=== PATIENT | male | born 1970 | race African-American/Black ===

== ENCOUNTER 2020-06-17 04:23 | Emergency (ER) | payer MEDICAID ==
[~2020-06-17] VITALS: Ht 193 cm; Wt 124.3 kg
[~2020-06-17 04:23] MED LIST: MIRT45TA3 PO; QUET300T2 PO; SERT100T PO
--- NOTE | 2020-06-17 04:41 | NUR ---
BIBRA FOR HEARING VOICES X 2 DAYS. + SI/ HI. PT WAS GOWNED UP, ALL BELONGINGS WERE TAKEN AWAY AND PUT IN A LOCKED. ON SI PRECAUTION. WILL CONT TO MONITOR ,
--- NOTE | 2020-06-17 04:57 | NUR ---
URINE COLLECTED AND SENT TO LAB
[2020-06-17 05:04] LABS: BASOPHILS # (AUTO) 0.1 /CMM (0.0-0.2); BASOPHILS % (AUTO) 0.8 % (0.0-2.0); EOSINOPHILS % (AUTO) 0.3 % (0.0-6.0); HEMATOCRIT 44 % (39-51); HEMOGLOBIN 14.5 g/dL (13.5-17.5); LYMPHOCYTES # (AUTO) 2.6 /CMM (0.8-4.8); LYMPHOCYTES % (AUTO) 16.2 % (20.0-44.0); MEAN CORPUSCULAR HGB CONC 33 g/dl (31.0-36.0); MEAN CORPUSCULAR VOLUME 91 fL (80-96); MONOCYTES # (AUTO) 1.4 /CMM (0.1-1.30); MONOCYTES % (AUTO) 8.9 % (2.0-12.0); NEUTROPHILS # (AUTO) 11.8 /CMM (1.8-8.9); NEUTROPHILS % (AUTO) 73.8 % (43.0-81.0); PLATELET COUNT (AUTO) 283 /CMM (150-450); RED BLOOD CELL COUNT(AUTO) 4.82 MIL/uL (4.5-6.0)
[2020-06-17 05:10] LABS: BILIRUBIN,URINE NEGATIVE (NEGATIVE); BLOOD, URINE NEGATIVE Ery/uL (NEGATIVE); COLOR,URINE YELLOW (YELLOW); LEUKOCYTE ESTERASE ,URINE NEGATIVE (NEGATIVE); NITRITE, URINE NEGATIVE (NEGATIVE); PROTEIN,URINE TRACE mg/dl (NEGATIVE); UGLUCOSE NEGATIVE (NEGATIVE); UROBILINOGEN,URINE 0.2 EU/dL (0.2)
[2020-06-17 05:11] LABS: CALCIUM, SERUM 9.4 mg/dL (8.5-10.1); CARBON DIOXIDE 24 mmol/L (21-32); CHLORIDE 101 mmol/L (98-107); CREATININE 1.1 mg/dL (0.6-1.3); GLUCOSE 101 mg/dL (74-106); POTASSIUM 3.9 mmol/L (3.5-5.1); SODIUM SERUM 137 mmol/L (136-145); UREA NITROGEN, BLOOD 14 mg/dL (7-18)
[2020-06-17 05:16] LABS: ALANINE AMINOTRANSFERASE 108 U/L (12-78); ALBUMIN 4.1 g/dL (3.4-5.0); ALCOHOL, BLOOD < 3 mg/dL (0-0); ALKALINE PHOSPHATASE 125 U/L (46-116); ASPARTATE AMINOTRANSFERASE 155 U/L (15-37); BILIRUBIN,DIRECT 0.4 mg/dL (0.0-0.2); TOTAL PROTEIN, SERUM 7.8 g/dL (6.4-8.2)
[2020-06-17 05:17] LABS: ACETAMINOPHEN 0 ug/ml (10-30)
[2020-06-17 05:18] LABS: BACTERIA,URINE None seen /HPF (None Seen); RBC,URINE 0-2 /HPF (0-2); SQUAMOUS EPITHELIAL CELL,UR Few /HPF (None Seen); WBC,URINE 0-2 /HPF (0-3)
--- NOTE | 2020-06-17 06:20 | NUR ---
Patient is resting comfortably in bed with eyes closed. Easily aroused. VSS
[2020-06-17] MEDS ORDERED: IV NS 0.9% 1,000 ML BAG IV ONE (06:30)
[2020-06-17] MEDS ORDERED: LORAZEPAM 1 MG TABLET PO ONE (06:30)
[2020-06-17] MEDS ORDERED: LORAZEPAM 1 MG TABLET ONE (06:37)
--- NOTE | 2020-06-17 07:13 | NUR ---
multiple attempts to start iv line , unsucsessful. Dr. James made aware
--- NOTE | 2020-06-17 11:43 | NUR ---
SW received a call from ED RN Christen requesting a health social work professor consultation for this patient. Patient is a 49-year-old male. Patient is alert and oriented x4. Patient was lying in bed. Patient was receptive to speaking to this SW. Patient reports he has been living with a family member however patient reports that he is homeless. Patient denies alcohol and patient admitted to Methamphetamine use. Patient's labs confirmed patient was positive for methamphetamine. Patient presented to [facility] ED for suicidal ideation. Patient reports that he has been diagnosed with Bipolar and Schizoaffective and patient reports that he is current out of his prescription. Patient reports that he has a monthly meeting with his psychiatrist over the phone and his therapist once a week. Patient reports that he spoke with his therapist early last week and started to have suicidal thoughts 2-3 days ago. Patient currently reports auditory hallucinations of reports stating he needs to hurt himself. Patient also reports visual hallucination of shadows attacking him. Patient denies homicidal ideation. Patient reported that he has been in a voluntary psychiatric facility approximately 6 months ago. SW and patient discussed voluntary psychiatric hospitalization and patient was in agreement for voluntary hospitalization. SW discussed referral option to [facility] and patient agreed to be referred to [facility]. Patient was cooperative and calm during this assessment. Patient's though process was tangential. Patient's speech was slurred and needed redirection at times throughout this assessment. Plan: ODESSA to fax clinicals to [facility] fax # and notify [facility] call center , select option 2. This long term care social worker will wait to hear back from [facility] intake regarding status of referral. This long term care social worker will follow-up with [facility] if status update is not provided.
--- NOTE | 2020-06-17 12:15 | NUR ---
ODESSA referred patient to [facility] as no update has been provided from [facility]. ODESSA contacted Jl at [facility] to inform Jl of this referral. Jl asked this SW to fax clinicals to [facility] Intake
--- NOTE | 2020-06-17 14:17 | NUR ---
RECIEVED A CALL FROM VICTOR HUGO AT [facility]. PT ACCEPTED AT [facility], GOING TO UNIT 1. NUMBER FOR REPORT [phone] HO/ DR. CARVAJAL ACCEPTING.
--- NOTE | 2020-06-17 14:50 | NUR ---
CALLED [facility] FOR TRANSPORT TO [facility]. ETA 1 HOUR.
--- NOTE | 2020-06-17 14:52 | NUR ---
REPORT GIVEN TO LILA BUTLER OF [facility].
--- NOTE | 2020-06-17 16:04 | NUR ---
REPORT GIVEN TO EMS FOR PT TRANSFER TO [facility].
[2020-06-17 16:40] VITALS: BP 124/78
== END 2020-06-17 16:42 ==
LOC: ER 04:23
DX: R45.851 Suicidal ideations (principal); R00.0 Tachycardia, unspecified; Z59.0 Homelessness; F15.10 Other stimulant abuse, uncomplicated; R74.01 Elevation of levels of liver transaminase levels; Z20.828 Contact with and (suspected) exposure to other viral communicable diseases; Z82.49 Family history of ischemic heart disease and other diseases of the circulatory system; F25.9 Schizoaffective disorder, unspecified; J45.909 Unspecified asthma, uncomplicated; F31.9 Bipolar disorder, unspecified
CPT/HCPCS: 36415; 76705; 80048; 80076; 80299; 80307; 80320; 81001; 84484; 85025; 87426; 93005; 99285; C9803; J7030; G0480

== ENCOUNTER 2020-11-15 23:51 | Emergency (ER) | payer MEDICAID ==
[~2020-11-15] VITALS: Ht 190.5 cm; Wt 113.4 kg
--- NOTE | 2020-11-15 23:51 | NUR ---
Pt to er, previously seen today requesting for med refill of albuterol, now requesting medclearance for socal van nuys. Pt endorses si with plan to shoot self, does not own gun. No immediate signs of distress noted. Pt vital signs stable. Pt to er bed, belongings removed from pt. SI precautions implememnted.
[2020-11-16 00:45] LABS: BASOPHILS # (AUTO) 0.1 /CMM (0.0-0.2); BASOPHILS % (AUTO) 0.7 % (0.0-2.0); EOSINOPHILS % (AUTO) 0.6 % (0.0-6.0); HEMATOCRIT 41 % (39-51); HEMOGLOBIN 13.5 g/dL (13.5-17.5); LYMPHOCYTES # (AUTO) 2.6 /CMM (0.8-4.8); LYMPHOCYTES % (AUTO) 20.5 % (20.0-44.0); MEAN CORPUSCULAR HGB CONC 33 g/dl (31.0-36.0); MEAN CORPUSCULAR VOLUME 93 fL (80-96); MONOCYTES # (AUTO) 1.3 /CMM (0.1-1.30); MONOCYTES % (AUTO) 10.4 % (2.0-12.0); NEUTROPHILS # (AUTO) 8.6 /CMM (1.8-8.9); NEUTROPHILS % (AUTO) 67.8 % (43.0-81.0); PLATELET COUNT (AUTO) 346 /CMM (150-450); RED BLOOD CELL COUNT(AUTO) 4.39 MIL/uL (4.5-6.0); WHITE BLOOD COUNT (AUTO) 12.6 K/uL (4.3-11.0)
[2020-11-16 00:47] LABS: BILIRUBIN,URINE NEGATIVE (NEGATIVE); COLOR,URINE YELLOW (YELLOW); LEUKOCYTE ESTERASE ,URINE NEGATIVE (NEGATIVE); NITRITE, URINE NEGATIVE (NEGATIVE); PH,URINE 5.5 (5.0-8.0); PROTEIN,URINE NEGATIVE (NEGATIVE); UGLUCOSE NEGATIVE (NEGATIVE); UROBILINOGEN,URINE 0.2 EU/dL (0.2)
[2020-11-16 01:15] LABS: CALCIUM, SERUM 8.9 mg/dL (8.5-10.1); CARBON DIOXIDE 26 mmol/L (21-32); CHLORIDE 103 mmol/L (98-107); CREATININE 1.2 mg/dL (0.6-1.3); GLUCOSE 106 mg/dL (74-106); POTASSIUM 3.7 mmol/L (3.5-5.1); SODIUM SERUM 140 mmol/L (136-145); UREA NITROGEN, BLOOD 14 mg/dL (7-18)
[2020-11-16 01:21] LABS: ALANINE AMINOTRANSFERASE 37 U/L (12-78); ALCOHOL, BLOOD < 3 mg/dL (0-0); ASPARTATE AMINOTRANSFERASE 35 U/L (15-37); BILIRUBIN,DIRECT 0.2 mg/dL (0.0-0.2); BILIRUBIN,TOTAL 0.8 mg/dL (0.2-1.0); TOTAL PROTEIN, SERUM 7.6 g/dL (6.4-8.2)
[2020-11-16 01:24] LABS: ACETAMINOPHEN 0 ug/ml (10-30)
--- NOTE | 2020-11-16 01:39 | NUR ---
CALL FROM LAB. RAPID COVID NEGATIVE.
[2020-11-16 01:45] LABS: ALKALINE PHOSPHATASE 131 U/L (46-116)
--- NOTE | 2020-11-16 01:50 | NUR ---
FACESHEET AND CLINICALS FAXED TO [facility].
--- NOTE | 2020-11-16 05:05 | NUR ---
Pt requesting to leave er. Pt is denying si and hi. Dr Neil made aware. Pt left er without waiting for discharge instructions.
[2020-11-16 05:10] VITALS: BP 145/89
== END 2020-11-16 05:10 | disposition home or self-care (01) ==
LOC: ER 23:53
DX: R45.851 Suicidal ideations (principal); F25.0 Schizoaffective disorder, bipolar type; J45.909 Unspecified asthma, uncomplicated; Z59.0 Homelessness; I10 Essential (primary) hypertension; Z20.822 Contact with and (suspected) exposure to COVID-19; F15.10 Other stimulant abuse, uncomplicated
CPT/HCPCS: 36415; 80048; 80076; 80299; 80307; 80320; 81003; 85025; 87426; 99285; C9803; G0480

== ENCOUNTER 2021-02-23 11:43 | Emergency (ER) | payer MEDICAID ==
[~2021-02-23] VITALS: Ht 195.6 cm; Wt 106.6 kg
--- NOTE | 2021-02-23 12:05 | NUR ---
Patient bibra c/o lower leg pain. patient states he is suicidal "i want to run throough traffic". on room air, breathing evenly and unlabored. kept comfortable, will continue to monitor accordingly.
--- NOTE | 2021-02-23 12:06 | NUR ---
called security for wanding.
--- NOTE | 2021-02-23 12:10 | NUR ---
security at bedside for wanding. Sitter at bedside for constant monitoring.
[2021-02-23 12:35] LABS: BASOPHILS % (AUTO) 0.4 % (0.0-2.0); EOSINOPHILS % (AUTO) 1.5 % (0.0-6.0); HEMATOCRIT 39 % (39-51); HEMOGLOBIN 12.9 g/dL (13.5-17.5); LYMPHOCYTES # (AUTO) 1.6 K/uL (0.8-4.8); LYMPHOCYTES % (AUTO) 16.7 % (20.0-44.0); MEAN CORPUSCULAR HGB CONC 33 g/dl (31.0-36.0); MEAN CORPUSCULAR VOLUME 91 fL (80-96); MONOCYTES # (AUTO) 1.4 K/uL (0.1-1.30); MONOCYTES % (AUTO) 14.4 % (2.0-12.0); NEUTROPHILS # (AUTO) 6.4 K/uL (1.8-8.9); PLATELET COUNT (AUTO) 346 K/uL (150-450); RED BLOOD CELL COUNT(AUTO) 4.25 MIL/uL (4.5-6.0); WHITE BLOOD COUNT (AUTO) 9.6 K/uL (4.3-11.0)
[2021-02-23 12:54] LABS: ALANINE AMINOTRANSFERASE 49 U/L (12-78); ALBUMIN 3.7 g/dL (3.4-5.0); ALKALINE PHOSPHATASE 91 U/L (46-116); ASPARTATE AMINOTRANSFERASE 46 U/L (15-37); BILIRUBIN,DIRECT 0.2 mg/dL (0.0-0.2); BILIRUBIN,TOTAL 0.8 mg/dL (0.2-1.0); CALCIUM, SERUM 8.9 mg/dL (8.5-10.1); CARBON DIOXIDE 25 mmol/L (21-32); CHLORIDE 104 mmol/L (98-107); CREATININE 1.5 mg/dL (0.6-1.3); GLUCOSE 82 mg/dL (74-106); SODIUM SERUM 140 mmol/L (136-145); TOTAL PROTEIN, SERUM 7.5 g/dL (6.4-8.2); UREA NITROGEN, BLOOD 26 mg/dL (7-18)
[2021-02-23 13:10] LABS: ACETAMINOPHEN < 10 ug/ml (10-30); ALCOHOL, BLOOD < 3 mg/dL (0-0)
[2021-02-23 13:12] LABS: BILIRUBIN,URINE NEGATIVE (NEGATIVE); LEUKOCYTE ESTERASE ,URINE NEGATIVE (NEGATIVE); NITRITE, URINE NEGATIVE (NEGATIVE); PROTEIN,URINE NEGATIVE (NEGATIVE); UGLUCOSE NEGATIVE (NEGATIVE); UROBILINOGEN,URINE 0.2 EU/dL (0.2)
[2021-02-23 13:17] LABS: COLOR,URINE DARK YELLOW (YELLOW)
[2021-02-23] MEDS ORDERED: ACETAMINOPHEN 325 MG TABLET ONE (17:58)
[2021-02-23] MEDS ORDERED: OLANZAPINE ZYDIS 5 MG TAB.RAPDIS ONE (17:58)
[2021-02-23] MEDS ORDERED: OLANZAPINE 5 MG TABLET PO ONE (18:00)
[2021-02-23] MEDS ORDERED: ACETAMINOPHEN 650 MG/20.3 ML UDC PO ONE (18:00)
--- NOTE | 2021-02-23 22:51 | NUR ---
PT ACCEPTED TO [facility] BY DR CAMPOS. # FOR REPORT [phone]
--- NOTE | 2021-02-23 23:15 | NUR ---
[facility] CALLED FOR TRANSPORT. ETA [phone]
[2021-02-24 03:13] VITALS: BP 122/69
--- NOTE | 2021-02-24 03:14 | NUR ---
ROOM NUMBER [id number]
--- NOTE | 2021-02-24 03:47 | NUR ---
REPORT GIVEN TO CELESTINE SHARP FOR [facility]
--- NOTE | 2021-02-24 03:57 | NUR ---
[facility] changed time to [phone]
[2021-02-24] MEDS ORDERED: ACETAMINOPHEN 325 MG TABLET ONE (05:41)
--- NOTE | 2021-02-24 05:52 | NUR ---
[facility] AT BEDSIDE FOR TRANSPORT TO [facility].
[2021-02-24] MEDS ORDERED: ACETAMINOPHEN 325 MG TABLET PO ONE (06:00)
== END 2021-02-24 06:02 ==
LOC: ER 11:50
DX: R45.851 Suicidal ideations (principal); F23 Brief psychotic disorder; M79.672 Pain in left foot; F19.10 Other psychoactive substance abuse, uncomplicated; Z20.822 Contact with and (suspected) exposure to COVID-19; M19.072 Primary osteoarthritis, left ankle and foot; M20.42 Other hammer toe(s) (acquired), left foot; D64.9 Anemia, unspecified; Z59.0 Homelessness; F25.0 Schizoaffective disorder, bipolar type; J45.909 Unspecified asthma, uncomplicated; I10 Essential (primary) hypertension; S99.922A Unspecified injury of left foot, initial encounter; X58.XXXA Exposure to other specified factors, initial encounter; Y92.89 Other specified places as the place of occurrence of the external cause
CPT/HCPCS: 36415; 73630; 80048; 80076; 80143; 80307; 80320; 81003; 85025; 87426; 99285; C9803; G0480

== ENCOUNTER 2021-03-18 00:29 | Emergency (ER) | payer MEDICAID ==
[~2021-03-18] VITALS: Ht 188 cm; Wt 99.8 kg
[2021-03-18 00:29] VITALS: BP 113/71
== END 2021-03-18 00:59 | disposition home or self-care (01) ==
LOC: ER 00:35
DX: F30.9 Manic episode, unspecified (principal); I10 Essential (primary) hypertension; J45.909 Unspecified asthma, uncomplicated; F20.9 Schizophrenia, unspecified; F17.200 Nicotine dependence, unspecified, uncomplicated; Z59.0 Homelessness; Z79.899 Other long term (current) drug therapy

== ENCOUNTER 2021-04-14 05:07 | Emergency (ER) | payer MEDICAID ==
[~2021-04-14] VITALS: Ht 190.5 cm; Wt 102.1 kg
--- NOTE | 2021-04-14 05:18 | NUR ---
PT PROVIDED WITH WARM BLANKETS.
[2021-04-14] MEDS ORDERED: OLANZAPINE 5 MG TABLET ONE (05:23)
[2021-04-14] MEDS ORDERED: OLANZAPINE 5 MG TABLET PO ONE (05:30)
--- NOTE | 2021-04-14 05:34 | NUR ---
NESTOR FROM 711 TO ER BED 14. AAOX4. NOT IN RESP DISTRESS. AMBULATORY. BROUGHT IN FOR HEARING VOICES. PER PT, HE IS HEARING RANDOM VOICES, NOT TELLING HIM TO HURT HIMSELF. PT ALSO REPORTS THAT HE HAS RACING THOUGHTS. MD WAS AT THE BEDSIDE FOR EVAL. ORDERS RECEIVED, NOTED AND CARRIED OUT. PT MEDICATED ORDERED
--- NOTE | 2021-04-14 05:45 | NUR ---
urine sent to lab
--- NOTE | 2021-04-14 07:25 | NUR ---
ASSESSED PT ON BED AWAKE, AAOX3, NOT IN RESPIRATORY DISTRESS, V/S STABLE, KEPT RESTED AND COMFORTABLE. WILL CONTINUE TO MONITOR.
--- NOTE | 2021-04-14 07:29 | NUR ---
BREAKFAST TRAY PROVIDED.
[2021-04-14 08:24] LABS: CARBON DIOXIDE 28 mmol/L (21-32); CHLORIDE 104 mmol/L (98-107); GLUCOSE 95 mg/dL (74-106); POTASSIUM 3.8 mmol/L (3.5-5.1); SODIUM SERUM 141 mmol/L (136-145); UREA NITROGEN, BLOOD 14 mg/dL (7-18)
[2021-04-14 08:26] LABS: BILIRUBIN,URINE Negative (NEGATIVE); COLOR,URINE DARK YELLOW (YELLOW); LEUKOCYTE ESTERASE ,URINE Negative (NEGATIVE); NITRITE, URINE Negative (NEGATIVE); PROTEIN,URINE Negative (NEGATIVE); UGLUCOSE Negative (NEGATIVE)
[2021-04-14 08:28] LABS: BASOPHILS # (AUTO) 0.1 K/uL (0.0-0.2); EOSINOPHILS % (AUTO) 2.2 % (0.0-6.0); HEMATOCRIT 41 % (39-51); HEMOGLOBIN 13.7 g/dL (13.5-17.5); LYMPHOCYTES # (AUTO) 1.8 K/uL (0.8-4.8); LYMPHOCYTES % (AUTO) 19.8 % (20.0-44.0); MEAN CORPUSCULAR HGB CONC 34 g/dl (31.0-36.0); MEAN CORPUSCULAR VOLUME 91 fL (80-96); MONOCYTES # (AUTO) 0.9 K/uL (0.1-1.30); MONOCYTES % (AUTO) 9.6 % (2.0-12.0); NEUTROPHILS % (AUTO) 67.4 % (43.0-81.0); PLATELET COUNT (AUTO) 315 K/uL (150-450); WHITE BLOOD COUNT (AUTO) 8.9 K/uL (4.3-11.0)
[2021-04-14 08:30] LABS: ACETAMINOPHEN < 0 ug/ml (10-30); ALANINE AMINOTRANSFERASE 57 U/L (12-78); ALBUMIN 3.9 g/dL (3.4-5.0); ALCOHOL, BLOOD < 3 mg/dL (0-0); ALKALINE PHOSPHATASE 116 U/L (46-116); ASPARTATE AMINOTRANSFERASE 37 U/L (15-37); BILIRUBIN,DIRECT 0.3 mg/dL (0.0-0.2); CALCIUM, SERUM 8.7 mg/dL (8.5-10.1); TOTAL PROTEIN, SERUM 7.8 g/dL (6.4-8.2)
[2021-04-14 08:41] LABS: BACTERIA,URINE Few /HPF (None Seen); MUCUS,URINE Moderate /LPF (None Seen); RBC,URINE 0-2 /HPF (0-2); SQUAMOUS EPITHELIAL CELL,UR Few /HPF (None Seen); WBC,URINE 0-2 /HPF (0-3)
--- NOTE | 2021-04-14 09:30 | NUR ---
FAXED MISSING FACE SHEET TO [facility]
--- NOTE | 2021-04-14 10:35 | NUR ---
PT STATED HE WANTS TO LEAVE AND NOT SUICIDAL OR HOMICIDAL. AWARE.
--- NOTE | 2021-04-14 10:38 | NUR ---
Patient given written and verbal discharge instructions. Patient verbalizes understanding of instructions. Patient is ambulatory with steady gait. Refuses offer of care home placement. Patient given list of available shelters in surrounding area.
[2021-04-14 10:40] VITALS: BP 130/75
--- NOTE | 2021-04-14 10:50 | NUR ---
SS note SS was unable to assess the pt as the pt had already been discharged prior to arrival. No further SS intervention at this time, however, SS will remain available as needed.
== END 2021-04-14 10:40 | disposition home or self-care (01) ==
LOC: ER 05:09
DX: F23 Brief psychotic disorder (principal); F15.10 Other stimulant abuse, uncomplicated; Z59.0 Homelessness; F25.0 Schizoaffective disorder, bipolar type; J45.909 Unspecified asthma, uncomplicated; Z79.899 Other long term (current) drug therapy
CPT/HCPCS: 36415; 80048; 80076; 80143; 80307; 80320; 81001; 85025; 87426; 99283; C9803; G0480

== ENCOUNTER 2022-01-09 03:23 | Emergency (ER) | payer MEDICAID ==
[~2022-01-09] VITALS: Ht 188 cm; Wt 117.9 kg
[2022-01-09] MEDS ORDERED: OLANZAPINE 5 MG TABLET ONE (03:58)
[2022-01-09] MEDS ORDERED: OLANZAPINE 5 MG TABLET PO ONE (04:00)
[2022-01-09 04:14] LABS: BASOPHILS # (AUTO) 0.1 K/uL (0.0-0.2); BASOPHILS % (AUTO) 0.5 % (0.0-2.0); EOSINOPHILS % (AUTO) 0.2 % (0.0-6.0); HEMATOCRIT 43 % (39-51); HEMOGLOBIN 14.6 g/dL (13.5-17.5); LYMPHOCYTES # (AUTO) 1.5 K/uL (0.8-4.8); LYMPHOCYTES % (AUTO) 11.7 % (20.0-44.0); MEAN CORPUSCULAR HGB CONC 34 g/dl (31.0-36.0); MEAN CORPUSCULAR VOLUME 88 fL (80-96); MONOCYTES # (AUTO) 1.1 K/uL (0.1-1.30); MONOCYTES % (AUTO) 8.8 % (2.0-12.0); NEUTROPHILS # (AUTO) 10.2 K/uL (1.8-8.9); NEUTROPHILS % (AUTO) 78.8 % (43.0-81.0); PLATELET COUNT (AUTO) 316 K/uL (150-450); RED BLOOD CELL COUNT(AUTO) 4.86 MIL/uL (4.5-6.0)
[2022-01-09 04:16] LABS: BILIRUBIN,URINE NEGATIVE (NEGATIVE); COLOR,URINE YELLOW (YELLOW); LEUKOCYTE ESTERASE ,URINE NEGATIVE (NEGATIVE); NITRITE, URINE NEGATIVE (NEGATIVE); PROTEIN,URINE NEGATIVE (NEGATIVE); UGLUCOSE NEGATIVE (NEGATIVE); UROBILINOGEN,URINE 0.2 EU/dL (0.2)
--- NOTE | 2022-01-09 04:19 | NUR ---
PT BIBRA [id number] FROM [facility] C/O + SI HEARING VOICES, WANTING VOL PSYCH ADMIT. PT A/O X 4, RR EVEN UNLABORED. PT WANDED BY SECURITY, BELONGINGS TAKEN, PT IN HOSPIPTAL GOWN. PT TO ER BED 18
--- NOTE | 2022-01-09 04:21 | NUR ---
URINE COLLECTED SENT TO LAB
--- NOTE | 2022-01-09 04:21 | NUR ---
ANURADHA COLLECTED SENT LAB
[2022-01-09 04:23] LABS: ALANINE AMINOTRANSFERASE 59 U/L (12-78); ALBUMIN 4.5 g/dL (3.4-5.0); ALCOHOL, BLOOD < 3 mg/dL (0-0); ALKALINE PHOSPHATASE 196 U/L (46-116); ASPARTATE AMINOTRANSFERASE 35 U/L (15-37); BILIRUBIN,DIRECT 0.2 mg/dL (0.0-0.2); BILIRUBIN,TOTAL 0.8 mg/dL (0.2-1.0); CALCIUM, SERUM 9.4 mg/dL (8.5-10.1); CARBON DIOXIDE 25 mmol/L (21-32); CHLORIDE 103 mmol/L (98-107); CREATININE 1.4 mg/dL (0.6-1.3); GLUCOSE 133 mg/dL (74-106); POTASSIUM 4.1 mmol/L (3.5-5.1); SODIUM SERUM 141 mmol/L (136-145); TOTAL PROTEIN, SERUM 8.4 g/dL (6.4-8.2); UREA NITROGEN, BLOOD 14 mg/dL (7-18)
[2022-01-09 04:25] LABS: ACETAMINOPHEN 0 ug/ml (10-30)
--- NOTE | 2022-01-09 06:37 | NUR ---
FACESHEET AND CLINICALS FAXED TO [facility].
--- NOTE | 2022-01-09 08:37 | NUR ---
THE PATIENT IS ACCEPTED TO [facility] UNDER DR BUITRAGO NUMBER FOR REPORT [phone] EXT [phone]
[2022-01-09 08:45] VITALS: BP 131/87
--- NOTE | 2022-01-09 08:46 | NUR ---
[facility] CALLED FOR TRANSPORT WITH ETA OF 60 MINS PER NOHELIA.
--- NOTE | 2022-01-09 09:02 | NUR ---
REPORT GIVEN TO KWAN AUGUSTIN FOR [facility]. SEND PATIENT TO ADMITTING
--- NOTE | 2022-01-09 09:44 | NUR ---
REPORT GIVEN TO AMBULANCE STAFF
--- NOTE | 2022-01-09 10:01 | NUR ---
THE PATIENT IS TRANSFERED TO [facility] VIA [facility] TRANSPO
== END 2022-01-09 10:01 ==
LOC: ER 03:31
DX: R45.851 Suicidal ideations (principal); Z59.00 Homelessness unspecified; Z20.822 Contact with and (suspected) exposure to COVID-19; F25.9 Schizoaffective disorder, unspecified; F31.9 Bipolar disorder, unspecified; F19.10 Other psychoactive substance abuse, uncomplicated; I10 Essential (primary) hypertension; J45.909 Unspecified asthma, uncomplicated; F17.200 Nicotine dependence, unspecified, uncomplicated
CPT/HCPCS: 36415; 80048; 80076; 80143; 80307; 80320; 81003; 85025; 87426; 99285; C9803; G0480

== ENCOUNTER 2022-06-10 20:43 | Emergency (ER) | payer MEDICAID, OTHER ==
[~2022-06-10] VITALS: Ht 182.9 cm; Wt 135.2 kg
--- NOTE | 2022-06-10 21:22 | NUR ---
PRESENTED TO THE ER FOR C/O SI, REQUESTING VOLUNTARY PSYCH ADMISSION. PT A, O4. AMBULATORY WITH STEADY GAITS T OTHE BATHROOM. URINE SAMPLE OBTAINED AND SENT TO LAB. PT WAS GOWNED UP AND ALL BELONGINGS WERE TAKEN AWAY AND KEPT IN SAFE. SI PRECAUTION IMPLEMENTED. WILL CONT TO MONITOR
[2022-06-10] MEDS ORDERED: OLANZAPINE 10 MG VIAL IM ONE ×2 (21:57→22:00)
[2022-06-10 22:00] LABS: BILIRUBIN,URINE 1+ (NEGATIVE); COLOR,URINE YELLOW (YELLOW); LEUKOCYTE ESTERASE ,URINE NEGATIVE (NEGATIVE); NITRITE, URINE NEGATIVE (NEGATIVE); PH,URINE 5.5 (5.0-8.0); PROTEIN,URINE NEGATIVE (NEGATIVE); UGLUCOSE NEGATIVE (NEGATIVE); UROBILINOGEN,URINE 0.2 EU/dL (0.2)
[2022-06-10 22:31] LABS: RBC,URINE 0-2 /HPF (0-2); WBC,URINE 0-2 /HPF (0-3)
[2022-06-10 22:32] LABS: BACTERIA,URINE Rare /HPF (None Seen); MUCUS,URINE Many /LPF (None Seen); SQUAMOUS EPITHELIAL CELL,UR Moderate /HPF (None Seen)
--- NOTE | 2022-06-11 00:48 | NUR ---
BUILDING COORDINATOR AT PT'S BEDSIDE
[2022-06-11 01:19] LABS: BASOPHILS # (AUTO) 0.1 K/uL (0.0-0.2); BASOPHILS % (AUTO) 0.5 % (0.0-2.0); EOSINOPHILS % (AUTO) 0.8 % (0.0-6.0); HEMATOCRIT 43 % (39-51); HEMOGLOBIN 14.2 g/dL (13.5-17.5); LYMPHOCYTES # (AUTO) 1.9 K/uL (0.8-4.8); LYMPHOCYTES % (AUTO) 17.1 % (20.0-44.0); MEAN CORPUSCULAR HGB CONC 33 g/dl (31.0-36.0); MEAN CORPUSCULAR VOLUME 89 fL (80-96); MONOCYTES # (AUTO) 1.1 K/uL (0.1-1.30); MONOCYTES % (AUTO) 9.9 % (2.0-12.0); NEUTROPHILS # (AUTO) 7.9 K/uL (1.8-8.9); NEUTROPHILS % (AUTO) 71.7 % (43.0-81.0); PLATELET COUNT (AUTO) 313 K/uL (150-450); RED BLOOD CELL COUNT(AUTO) 4.89 MIL/uL (4.5-6.0); WHITE BLOOD COUNT (AUTO) 11.1 K/uL (4.3-11.0)
[2022-06-11 01:30] LABS: CALCIUM, SERUM 9.1 mg/dL (8.5-10.1); CARBON DIOXIDE 21 mmol/L (21-32); CHLORIDE 107 mmol/L (98-107); CREATININE 0.9 mg/dL (0.6-1.3); GLUCOSE 120 mg/dL (74-106); POTASSIUM 3.9 mmol/L (3.5-5.1); SODIUM SERUM 140 mmol/L (136-145); UREA NITROGEN, BLOOD 17 mg/dL (7-18)
[2022-06-11 01:36] LABS: ALANINE AMINOTRANSFERASE 42 U/L (12-78); ALBUMIN 4.1 g/dL (3.4-5.0); ALCOHOL, BLOOD < 3 mg/dL (0-0); ALKALINE PHOSPHATASE 124 U/L (46-116); ASPARTATE AMINOTRANSFERASE 20 U/L (15-37); BILIRUBIN,DIRECT 0.2 mg/dL (0.0-0.2); BILIRUBIN,TOTAL 0.5 mg/dL (0.2-1.0); TOTAL PROTEIN, SERUM 7.9 g/dL (6.4-8.2)
[2022-06-11 01:54] LABS: ACETAMINOPHEN 0 ug/ml (10-30)
--- NOTE | 2022-06-11 03:00 | NUR ---
FACESHEET AND CLINICALS FAXED TO [facility].
--- NOTE | 2022-06-11 08:00 | NUR ---
Breakfast given- Tolerated well. Ate 100%
--- NOTE | 2022-06-11 10:51 | NUR ---
Spoke to [facility] Payable Representative Tyra "We have NO male beds right now but have discharges around 11am. Will keep you updated"
--- NOTE | 2022-06-11 10:57 | NUR ---
PT ACCEPTED AT [facility] UNDER DR. QUINTERO [phone] EXT [phone] FOR REPORT [facility] ETA 60 MINS
[2022-06-11 12:35] VITALS: BP 140/89
== END 2022-06-11 12:36 ==
LOC: ER 20:51
DX: R45.851 Suicidal ideations (principal); F25.9 Schizoaffective disorder, unspecified; F31.9 Bipolar disorder, unspecified; I10 Essential (primary) hypertension; Z20.822 Contact with and (suspected) exposure to COVID-19; J45.909 Unspecified asthma, uncomplicated; Z59.00 Homelessness unspecified; Z79.899 Other long term (current) drug therapy; K42.9 Umbilical hernia without obstruction or gangrene
CPT/HCPCS: 99285; 96372; 85025; 80048; 80076; 81001; 36415; 87426; 80143; 80320; 80307; J3490; C9803; G0480

== ENCOUNTER 2022-06-19 04:54 | Emergency (ER) | payer OTHER ==
[~2022-06-19] VITALS: Ht 193 cm; Wt 135.6 kg
--- NOTE | 2022-06-19 05:02 | NUR ---
COVID ANTIGEN SWAB COLLECTED AND SENT TO LAB
--- NOTE | 2022-06-19 05:04 | NUR ---
BIBSELF C/O +SI-HI WITH PLAN TO RUN INTO TRAFFIC. WANTS VOL PSYCH ADMIT PT A/OX4. TOLERATING R/A WELL WITH NO RESP DISRESS.PT AMBULATORY WITH STEADY GAIT. PT CHANGED IN GOWN, BELONGINGS COLLECTED AND PLACED IN LOCKER. WANDED BY SECURITY. SAFETY SUICIDE MEASURES IN PLACE.
--- NOTE | 2022-06-19 05:10 | NUR ---
AUTOMATIC EQUIPMENT TECHNICIAN AT PT'S BEDSIDE
[2022-06-19 05:41] LABS: BILIRUBIN,URINE NEGATIVE (NEGATIVE); COLOR,URINE YELLOW (YELLOW); LEUKOCYTE ESTERASE ,URINE NEGATIVE (NEGATIVE); NITRITE, URINE NEGATIVE (NEGATIVE); PH,URINE 5.5 (5.0-8.0); PROTEIN,URINE NEGATIVE (NEGATIVE); UGLUCOSE NEGATIVE (NEGATIVE); UROBILINOGEN,URINE 0.2 EU/dL (0.2)
[2022-06-19 05:57] LABS: BASOPHILS # (AUTO) 0.1 K/uL (0.0-0.2); BASOPHILS % (AUTO) 0.6 % (0.0-2.0); EOSINOPHILS % (AUTO) 0.3 % (0.0-6.0); HEMATOCRIT 44 % (39-51); HEMOGLOBIN 14.4 g/dL (13.5-17.5); LYMPHOCYTES # (AUTO) 1.4 K/uL (0.8-4.8); LYMPHOCYTES % (AUTO) 11.5 % (20.0-44.0); MEAN CORPUSCULAR HGB CONC 33 g/dl (31.0-36.0); MEAN CORPUSCULAR VOLUME 89 fL (80-96); MONOCYTES # (AUTO) 0.9 K/uL (0.1-1.30); MONOCYTES % (AUTO) 7.5 % (2.0-12.0); NEUTROPHILS # (AUTO) 9.7 K/uL (1.8-8.9); NEUTROPHILS % (AUTO) 80.1 % (43.0-81.0); PLATELET COUNT (AUTO) 289 K/uL (150-450); RED BLOOD CELL COUNT(AUTO) 4.91 MIL/uL (4.5-6.0); WHITE BLOOD COUNT (AUTO) 12.1 K/uL (4.3-11.0)
[2022-06-19 06:14] LABS: CALCIUM, SERUM 9.5 mg/dL (8.5-10.1); CARBON DIOXIDE 25 mmol/L (21-32); CHLORIDE 107 mmol/L (98-107); GLUCOSE 112 mg/dL (74-106); POTASSIUM 3.7 mmol/L (3.5-5.1); SODIUM SERUM 141 mmol/L (136-145); UREA NITROGEN, BLOOD 16 mg/dL (7-18)
[2022-06-19 06:21] LABS: ALANINE AMINOTRANSFERASE 37 U/L (12-78); ALBUMIN 4.1 g/dL (3.4-5.0); ALKALINE PHOSPHATASE 142 U/L (46-116); ASPARTATE AMINOTRANSFERASE 22 U/L (15-37); BILIRUBIN,DIRECT 0.2 mg/dL (0.0-0.2); BILIRUBIN,TOTAL 0.7 mg/dL (0.2-1.0); TOTAL PROTEIN, SERUM 8.2 g/dL (6.4-8.2)
[2022-06-19 06:23] LABS: ACETAMINOPHEN < 10 ug/ml (10-30)
--- NOTE | 2022-06-19 07:59 | NUR ---
FAXED CLINICALS TO [facility].
--- NOTE | 2022-06-19 09:57 | NUR ---
PT ACCEPTED TO [facility] UNDER DR. HAMILTON PLEASE CALL [phone] TO KAREN FOR REPORT ADDRESS IS [address] [place] [id number]
--- NOTE | 2022-06-19 10:01 | NUR ---
[facility] 60 MINS ETA.
[2022-06-19 10:35] VITALS: BP 148/86
--- NOTE | 2022-06-19 10:53 | NUR ---
REPORT GIVEN TO KAREN AT [facility]. TRANSPORTED IN STABLE CONDITION.
== END 2022-06-19 10:56 ==
LOC: ER 05:00
DX: R45.851 Suicidal ideations (principal); Z59.00 Homelessness unspecified; Z20.822 Contact with and (suspected) exposure to COVID-19; F25.9 Schizoaffective disorder, unspecified; F31.9 Bipolar disorder, unspecified; Z79.899 Other long term (current) drug therapy; J45.909 Unspecified asthma, uncomplicated; I10 Essential (primary) hypertension
CPT/HCPCS: 99285; 87426; 85025; 80048; 87086; 80076; 36415; 80143; 80307; 81003; C9803

== ENCOUNTER 2022-12-04 01:41 | Emergency (ER) | payer OTHER ==
[~2022-12-04] VITALS: Ht 190.5 cm; Wt 108.9 kg
[2022-12-04 01:55] VITALS: BP 121/70
--- NOTE | 2022-12-04 01:55 | NUR ---
[id number] FROM STREETS , + AUDITORY HALLUCINATION. WANTS VOLUNTARY PSYCHE ADMISSION. PT A/OX3. TOLERATING R/A WELL WITH NO RESP DISTRESS. AMB WITH STEADY GAIT. CHANGED IN GOWN, BELONGINGS IN LOCKER, AND WANDED BY SECURITY. SAFETY MEASURES IN PLACE.
--- NOTE | 2022-12-04 02:00 | NUR ---
COVID SWAB DONE
--- NOTE | 2022-12-04 02:00 | NUR ---
URINE SPECIMEN SENT TO LAB
--- NOTE | 2022-12-04 02:06 | NUR ---
MICA PLATE LAYER HAND AT PT'S BEDSIDE
[2022-12-04 02:30] LABS: BASOPHILS # (AUTO) 0.1 K/uL (0.0-0.2); BASOPHILS % (AUTO) 0.4 % (0.0-2.0); EOSINOPHILS % (AUTO) 0.7 % (0.0-6.0); HEMATOCRIT 39 % (39-51); HEMOGLOBIN 12.6 g/dL (13.5-17.5); LYMPHOCYTES # (AUTO) 1.6 K/uL (0.8-4.8); LYMPHOCYTES % (AUTO) 12.4 % (20.0-44.0); MEAN CORPUSCULAR HGB CONC 32 g/dl (31.0-36.0); MEAN CORPUSCULAR VOLUME 87 fL (80-96); MONOCYTES # (AUTO) 0.9 K/uL (0.1-1.30); NEUTROPHILS # (AUTO) 10.4 K/uL (1.8-8.9); NEUTROPHILS % (AUTO) 79.5 % (43.0-81.0); PLATELET COUNT (AUTO) 484 K/uL (150-450); RED BLOOD CELL COUNT(AUTO) 4.49 MIL/uL (4.5-6.0); WHITE BLOOD COUNT (AUTO) 13.1 K/uL (4.3-11.0)
[2022-12-04 02:38] LABS: BILIRUBIN,URINE NEGATIVE (NEGATIVE); COLOR,URINE YELLOW (YELLOW); LEUKOCYTE ESTERASE ,URINE NEGATIVE (NEGATIVE); NITRITE, URINE NEGATIVE (NEGATIVE); PROTEIN,URINE NEGATIVE (NEGATIVE); UGLUCOSE NEGATIVE (NEGATIVE); UROBILINOGEN,URINE 0.2 EU/dL (0.2)
[2022-12-04 02:47] LABS: ALANINE AMINOTRANSFERASE 27 U/L (12-78); ALBUMIN 3.2 g/dL (3.4-5.0); ALKALINE PHOSPHATASE 85 U/L (46-116); ASPARTATE AMINOTRANSFERASE 20 U/L (15-37); BILIRUBIN,DIRECT 0.1 mg/dL (0.0-0.2); BILIRUBIN,TOTAL 0.4 mg/dL (0.2-1.0); CARBON DIOXIDE 24 mmol/L (21-32); CHLORIDE 103 mmol/L (98-107); CREATININE 0.9 mg/dL (0.6-1.3); GLUCOSE 108 mg/dL (74-106); POTASSIUM 3.6 mmol/L (3.5-5.1); SODIUM SERUM 136 mmol/L (136-145); TOTAL PROTEIN, SERUM 7.4 g/dL (6.4-8.2); UREA NITROGEN, BLOOD 12 mg/dL (7-18)
[2022-12-04 03:01] LABS: ALCOHOL, BLOOD < 3 mg/dL (0-0)
--- NOTE | 2022-12-04 03:44 | NUR ---
CLINICALS FAXED TO [facility]
--- NOTE | 2022-12-04 04:16 | NUR ---
PT ACCEPTED TO [facility] UNDER DR ROSALES CALL [facility] UN[facility] FOR REPORT
--- NOTE | 2022-12-04 04:23 | NUR ---
[facility] CALLED FOR BLS GOING [facility] [PER BOBBI ETA 75 MIN
--- NOTE | 2022-12-04 04:29 | NUR ---
REPORT GIVEN TO KEYANNA PINEDA RN FOR [facility]
--- NOTE | 2022-12-04 05:43 | NUR ---
REPORT GIVEN TO [facility] TO TRANSFER PT TO [facility]. CATRINA EMT AT PT'S BEDSIDE. VSS. ALL BELONGINGS WITH PT.
== END 2022-12-04 05:49 ==
LOC: ER 01:48
DX: R44.0 Auditory hallucinations (principal); I10 Essential (primary) hypertension; J45.909 Unspecified asthma, uncomplicated; F31.9 Bipolar disorder, unspecified; F17.200 Nicotine dependence, unspecified, uncomplicated; Z59.00 Homelessness unspecified; Z20.822 Contact with and (suspected) exposure to COVID-19
CPT/HCPCS: 99285; 85025; 80048; 80076; 81003; 36415; 87426; 80143; 80320; 80307; C9803; G0480

== ENCOUNTER 2022-12-22 04:26 | Emergency (ER) | payer OTHER ==
[~2022-12-22] VITALS: Ht 175.3 cm; Wt 79.4 kg
--- NOTE | 2022-12-22 04:55 | NUR ---
BIBRA FROM THE STREETS C/O S/I AND AUDITORY HALLUCINATIONS SEEKING. ON ROOM AIR. PLACED COMFORTABLY ON BED. V/S CHECKED.
--- NOTE | 2022-12-22 05:05 | NUR ---
URINE SPECIMEN SENT TO LAB
[2022-12-22 05:33] LABS: BASOPHILS # (AUTO) 0.1 K/uL (0.0-0.2); BASOPHILS % (AUTO) 0.5 % (0.0-2.0); EOSINOPHILS % (AUTO) 2.4 % (0.0-6.0); HEMATOCRIT 44 % (39-51); HEMOGLOBIN 14.2 g/dL (13.5-17.5); LYMPHOCYTES % (AUTO) 20.5 % (20.0-44.0); MEAN CORPUSCULAR HGB CONC 32 g/dl (31.0-36.0); MEAN CORPUSCULAR VOLUME 89 fL (80-96); MONOCYTES # (AUTO) 0.7 K/uL (0.1-1.30); MONOCYTES % (AUTO) 7.2 % (2.0-12.0); NEUTROPHILS # (AUTO) 6.8 K/uL (1.8-8.9); NEUTROPHILS % (AUTO) 69.4 % (43.0-81.0); PLATELET COUNT (AUTO) 290 K/uL (150-450); RED BLOOD CELL COUNT(AUTO) 4.98 MIL/uL (4.5-6.0); WHITE BLOOD COUNT (AUTO) 9.9 K/uL (4.3-11.0)
[2022-12-22 05:38] LABS: BILIRUBIN,URINE NEGATIVE (NEGATIVE); COLOR,URINE YELLOW (YELLOW); LEUKOCYTE ESTERASE ,URINE NEGATIVE (NEGATIVE); NITRITE, URINE NEGATIVE (NEGATIVE); PROTEIN,URINE NEGATIVE (NEGATIVE); UGLUCOSE NEGATIVE (NEGATIVE); UROBILINOGEN,URINE 0.2 EU/dL (0.2)
[2022-12-22 05:49] LABS: CALCIUM, SERUM 9.5 mg/dL (8.5-10.1); CREATININE 0.9 mg/dL (0.6-1.3); POTASSIUM 3.6 mmol/L (3.5-5.1)
[2022-12-22 06:01] LABS: ALBUMIN 3.9 g/dL (3.4-5.0); BILIRUBIN,DIRECT 0.1 mg/dL (0.0-0.2); BILIRUBIN,TOTAL 0.4 mg/dL (0.2-1.0)
[2022-12-22 12:20] VITALS: BP 145/82
--- NOTE | 2022-12-22 12:21 | NUR ---
CHUCKING MACHINE OPERATOR BY [facility] TRANSPORT IN STABLE CONDITION.
== END 2022-12-22 12:23 ==
LOC: ER 04:28
DX: R45.851 Suicidal ideations (principal); R44.0 Auditory hallucinations; I10 Essential (primary) hypertension; J45.909 Unspecified asthma, uncomplicated; F31.9 Bipolar disorder, unspecified; F17.200 Nicotine dependence, unspecified, uncomplicated; Z59.00 Homelessness unspecified; Z79.899 Other long term (current) drug therapy; Z20.822 Contact with and (suspected) exposure to COVID-19
CPT/HCPCS: 99285; 85025; 80048; 80076; 81003; 36415; 87426; 80143; 80320; 80307; C9803; G0480

== ENCOUNTER 2023-05-07 20:17 | Emergency (ER) | payer OTHER ==
[~2023-05-07] VITALS: Ht 190.5 cm; Wt 126.6 kg
[2023-05-07 21:16] LABS: BASOPHILS # (AUTO) 0.1 K/uL (0.0-0.2); BASOPHILS % (AUTO) 0.5 % (0.0-2.0); HEMATOCRIT 40 % (39-51); HEMOGLOBIN 12.8 g/dL (13.5-17.5); LYMPHOCYTES % (AUTO) 9.7 % (20.0-44.0); MEAN CORPUSCULAR HEMOGLOBIN 29 PG (26.0-33.0); MEAN CORPUSCULAR HGB CONC 32 g/dl (31.0-36.0); MEAN CORPUSCULAR VOLUME 90 fL (80-96); MONOCYTES # (AUTO) 0.4 K/uL (0.1-1.30); NEUTROPHILS % (AUTO) 85.8 % (43.0-81.0); PLATELET COUNT (AUTO) 272 K/uL (150-450); RED BLOOD CELL COUNT(AUTO) 4.39 MIL/uL (4.5-6.0); RED CELL DISTRIBUTION WIDTH 13.4 % (11.5-15.0); WHITE BLOOD COUNT (AUTO) 10.6 K/uL (4.3-11.0)
[2023-05-07 21:32] LABS: AMPHETAMINE, URINE NEGATIVE (NEGATIVE); BARBITURATE, URINE NEGATIVE (NEGATIVE); BENZODIAZEPINE, URINE NEGATIVE (NEGATIVE); CANNABINOID, URINE NEGATIVE (NEGATIVE); COCCAINE, URINE NEGATIVE (NEGATIVE); OPIATE, URINE NEGATIVE (NEGATIVE); PHENCYCLIDINE SCREEN,URINE NEGATIVE (NEGATIVE)
[2023-05-07 21:32] LABS: CALCIUM, SERUM 9.6 mg/dL (8.5-10.1); CARBON DIOXIDE 25 mmol/L (21-32); CHLORIDE 103 mmol/L (98-107); CREATININE 0.8 mg/dL (0.6-1.3); GLUCOSE 112 mg/dL (74-106); POTASSIUM 3.2 mmol/L (3.5-5.1); SODIUM SERUM 136 mmol/L (136-145); UREA NITROGEN, BLOOD 12 mg/dL (7-18)
[2023-05-07 21:35] LABS: APPEARANCE,URINE CLEAR (CLEAR); BILIRUBIN,URINE NEGATIVE (NEGATIVE); BLOOD, URINE NEGATIVE Ery/uL (NEGATIVE); COLOR,URINE YELLOW (YELLOW); KETONES,URINE TRACE mg/dL (NEGATIVE); LEUKOCYTE ESTERASE ,URINE NEGATIVE (NEGATIVE); NITRITE, URINE NEGATIVE (NEGATIVE); PROTEIN,URINE TRACE mg/dl (NEGATIVE); UGLUCOSE NEGATIVE (NEGATIVE); UROBILINOGEN,URINE 0.2 EU/dL (0.2)
[2023-05-07 21:36] LABS: ALANINE AMINOTRANSFERASE 28 U/L (12-78); ALCOHOL, BLOOD 111 mg/dL (0-10); ALKALINE PHOSPHATASE 96 U/L (46-116); ASPARTATE AMINOTRANSFERASE 15 U/L (15-37); BILIRUBIN,DIRECT 0.1 mg/dL (0.0-0.2); BILIRUBIN,TOTAL 0.3 mg/dL (0.2-1.0); TOTAL PROTEIN, SERUM 7.2 g/dL (6.4-8.2)
[2023-05-07 21:58] LABS: ACETAMINOPHEN <10 ug/ml (10-30)
[2023-05-07 21:59] LABS: ADD URINE CULTURE NO; BACTERIA,URINE None seen /HPF (None Seen); MUCUS,URINE Moderate /LPF (None Seen); RBC,URINE 0-2 /HPF (0-2); SQUAMOUS EPITHELIAL CELL,UR 0-2 /HPF (None Seen); URIC ACID CRYSTALS,URINE Few /HPF (None Seen); WBC,URINE 0-2 /HPF (0-3)
[2023-05-08] MEDS ORDERED: POTASSIUM CHLORIDE 20 MEQ TAB.PRT.SR PO ONE ×2 (01:18→01:30)
[2023-05-08 02:38] VITALS: BP 132/86; TEMP 97.7; O2SAT 96
== END 2023-05-08 02:39 ==
LOC: ER 20:19
DX: R45.851 Suicidal ideations (principal); I10 Essential (primary) hypertension; J45.909 Unspecified asthma, uncomplicated; F31.9 Bipolar disorder, unspecified; F20.9 Schizophrenia, unspecified; F17.200 Nicotine dependence, unspecified, uncomplicated; Z20.822 Contact with and (suspected) exposure to COVID-19; Z79.899 Other long term (current) drug therapy; Z59.00 Homelessness unspecified
CPT/HCPCS: 99285; 85025; 80048; 80076; 81001; 36415; 87426; 80143; 80320; 80307; C9803; G0480

== ENCOUNTER 2023-05-19 01:03 | Emergency (ER) | payer OTHER | END 2023-05-19 02:29 | disposition left against medical advice (07) | LOC: ER 01:06 | DX: Z53.21 Procedure and treatment not carried out due to patient leaving prior to being seen by health care provider (principal) ==

== ENCOUNTER 2023-07-22 22:11 | Emergency (ER) | payer OTHER ==
[~2023-07-22] VITALS: Ht 188 cm; Wt 108.4 kg
[2023-07-22 22:16] VITALS: TEMP 97.9
[2023-07-22 22:23] VITALS: BP 143/89; O2SAT 98
[2023-07-22 22:42] LABS: BASOPHILS # (AUTO) 0.1 K/uL (0.0-0.2); BASOPHILS % (AUTO) 0.8 % (0.0-2.0); EOSINOPHILS # (AUTO) 0.3 K/uL (0.0-0.7); EOSINOPHILS % (AUTO) 3.3 % (0.0-6.0); HEMATOCRIT 40 % (39-51); HEMOGLOBIN 13.5 g/dL (13.5-17.5); LYMPHOCYTES # (AUTO) 2.5 K/uL (0.8-4.8); LYMPHOCYTES % (AUTO) 27.7 % (20.0-44.0); MEAN CORPUSCULAR HEMOGLOBIN 30 PG (26.0-33.0); MEAN CORPUSCULAR HGB CONC 34 g/dl (31.0-36.0); MEAN CORPUSCULAR VOLUME 89 fL (80-96); MONOCYTES # (AUTO) 0.7 K/uL (0.1-1.30); MONOCYTES % (AUTO) 7.4 % (2.0-12.0); NEUTROPHILS # (AUTO) 5.5 K/uL (1.8-8.9); NEUTROPHILS % (AUTO) 60.8 % (43.0-81.0); PLATELET COUNT (AUTO) 318 K/uL (150-450); RED BLOOD CELL COUNT(AUTO) 4.52 MIL/uL (4.5-6.0); RED CELL DISTRIBUTION WIDTH 12.5 % (11.5-15.0); WHITE BLOOD COUNT (AUTO) 9.1 K/uL (4.3-11.0)
[2023-07-22 22:58] LABS: ACETAMINOPHEN < 10 ug/ml (10-30); ALANINE AMINOTRANSFERASE 56 U/L (12-78); ALBUMIN 3.4 g/dL (3.4-5.0); ALCOHOL, BLOOD 168 mg/dL (0-10); ALKALINE PHOSPHATASE 123 U/L (46-116); ASPARTATE AMINOTRANSFERASE 48 U/L (15-37); BILIRUBIN,DIRECT 0.1 mg/dL (0.0-0.2); BILIRUBIN,TOTAL 0.3 mg/dL (0.2-1.0); CALCIUM, SERUM 8.8 mg/dL (8.5-10.1); CARBON DIOXIDE 23 mmol/L (21-32); CHLORIDE 103 mmol/L (98-107); CREATININE 0.9 mg/dL (0.6-1.3); GLUCOSE 96 mg/dL (74-106); POTASSIUM 3.4 mmol/L (3.5-5.1); SODIUM SERUM 134 mmol/L (136-145); TOTAL PROTEIN, SERUM 7.1 g/dL (6.4-8.2); UREA NITROGEN, BLOOD 9 mg/dL (7-18)
[2023-07-22 23:00] LABS: SALICYLATE 1.8 mg/dL (2.8-20.0)
== END 2023-07-22 23:00 | disposition home or self-care (01) ==
LOC: ER 22:13
DX: F10.129 Alcohol abuse with intoxication, unspecified (principal); F91.1 Conduct disorder, childhood-onset type; I10 Essential (primary) hypertension; J45.909 Unspecified asthma, uncomplicated; F20.0 Paranoid schizophrenia; F31.9 Bipolar disorder, unspecified; F17.200 Nicotine dependence, unspecified, uncomplicated; Z79.899 Other long term (current) drug therapy; Z20.822 Contact with and (suspected) exposure to COVID-19; Z59.00 Homelessness unspecified
CPT/HCPCS: 99283; 85025; 80048; 80076; 36415; 87426; 80143; 80320; C9803; G0480

== ENCOUNTER 2023-07-23 00:10 | Emergency (ER) | payer OTHER ==
[~2023-07-23] VITALS: Ht 188 cm; Wt 108.9 kg
[2023-07-23] MEDS ORDERED: LORAZEPAM INJ 2 MG/ML VIAL ONE (00:22)
[2023-07-23] MEDS ORDERED: diphenhydrAMINE HCL 50 MG/ML VIAL ONE (00:22)
[2023-07-23] MEDS ORDERED: HALOPERIDOL LACTATE INJ 5 MG/ML VIAL ONE (00:22)
[2023-07-23] MEDS ORDERED: LORAZEPAM INJ 2 MG/ML VIAL IM ONE (00:30)
[2023-07-23] MEDS ORDERED: HALOPERIDOL LACTATE INJ 5 MG/ML VIAL IM ONE (00:30)
[2023-07-23] MEDS ORDERED: diphenhydrAMINE HCL 50 MG/ML VIAL IM ONE (00:30)
[2023-07-23 01:16] LABS: BASOPHILS # (AUTO) 0.1 K/uL (0.0-0.2); BASOPHILS % (AUTO) 0.7 % (0.0-2.0); EOSINOPHILS # (AUTO) 0.3 K/uL (0.0-0.7); EOSINOPHILS % (AUTO) 3.1 % (0.0-6.0); HEMATOCRIT 41 % (39-51); HEMOGLOBIN 13.5 g/dL (13.5-17.5); LYMPHOCYTES # (AUTO) 2.6 K/uL (0.8-4.8); LYMPHOCYTES % (AUTO) 28.5 % (20.0-44.0); MEAN CORPUSCULAR HEMOGLOBIN 30 PG (26.0-33.0); MEAN CORPUSCULAR HGB CONC 33 g/dl (31.0-36.0); MEAN CORPUSCULAR VOLUME 90 fL (80-96); MONOCYTES # (AUTO) 0.7 K/uL (0.1-1.30); MONOCYTES % (AUTO) 7.6 % (2.0-12.0); NEUTROPHILS # (AUTO) 5.6 K/uL (1.8-8.9); NEUTROPHILS % (AUTO) 60.1 % (43.0-81.0); PLATELET COUNT (AUTO) 322 K/uL (150-450); RED BLOOD CELL COUNT(AUTO) 4.51 MIL/uL (4.5-6.0); RED CELL DISTRIBUTION WIDTH 12.8 % (11.5-15.0); WHITE BLOOD COUNT (AUTO) 9.2 K/uL (4.3-11.0)
[2023-07-23 01:32] LABS: CALCIUM, SERUM 8.8 mg/dL (8.5-10.1); POTASSIUM 4.1 mmol/L (3.5-5.1)
[2023-07-23 01:38] LABS: ALBUMIN 3.2 g/dL (3.4-5.0); BILIRUBIN,DIRECT 0.1 mg/dL (0.0-0.2); BILIRUBIN,TOTAL 0.2 mg/dL (0.2-1.0)
[2023-07-23] MEDS ORDERED: LIDOCAINE 2% JEL UROJET 10 ML MM ONE (01:43)
[2023-07-23 02:13] LABS: APPEARANCE,URINE CLEAR (CLEAR); BILIRUBIN,URINE NEGATIVE (NEGATIVE); BLOOD, URINE NEGATIVE Ery/uL (NEGATIVE); COLOR,URINE YELLOW (YELLOW); KETONES,URINE NEGATIVE (NEGATIVE); LEUKOCYTE ESTERASE ,URINE NEGATIVE (NEGATIVE); NITRITE, URINE NEGATIVE (NEGATIVE); PROTEIN,URINE NEGATIVE (NEGATIVE); UGLUCOSE NEGATIVE (NEGATIVE); UROBILINOGEN,URINE 0.2 EU/dL (0.2)
[2023-07-23 02:24] LABS: AMPHETAMINE, URINE NEGATIVE (NEGATIVE); BARBITURATE, URINE NEGATIVE (NEGATIVE); BENZODIAZEPINE, URINE NEGATIVE (NEGATIVE); CANNABINOID, URINE NEGATIVE (NEGATIVE); COCCAINE, URINE NEGATIVE (NEGATIVE); OPIATE, URINE NEGATIVE (NEGATIVE); PHENCYCLIDINE SCREEN,URINE NEGATIVE (NEGATIVE)
[2023-07-23 16:12] VITALS: BP 119/74; TEMP 98; O2SAT 97
== END 2023-07-23 16:13 | disposition short-term general hospital (02) ==
LOC: ER 00:18
DX: F10.129 Alcohol abuse with intoxication, unspecified (principal); F91.1 Conduct disorder, childhood-onset type; I10 Essential (primary) hypertension; J45.909 Unspecified asthma, uncomplicated; F20.9 Schizophrenia, unspecified; F31.9 Bipolar disorder, unspecified; F17.200 Nicotine dependence, unspecified, uncomplicated; Z20.822 Contact with and (suspected) exposure to COVID-19; Z79.899 Other long term (current) drug therapy; Z59.00 Homelessness unspecified; Y90.6 Blood alcohol level of 120-199 mg/100 ml
CPT/HCPCS: 99285; 96372 ×2; 85025; 80048; 80076; 81003; 36415; 87426; 80143; 80320; 80307; J2060; J1200; J1630; J3490; C9803; G0480

== ENCOUNTER 2023-07-30 00:43 | Emergency (ER) | payer OTHER ==
[~2023-07-30] VITALS: Ht 188 cm; Wt 108.9 kg
[2023-07-30 01:34] VITALS: BP 143/83; TEMP 98.1; O2SAT 98
[2023-07-30 02:06] LABS: BASOPHILS # (AUTO) 0.2 K/uL (0.0-0.2); BASOPHILS % (AUTO) 2.2 % (0.0-2.0); EOSINOPHILS # (AUTO) 0.3 K/uL (0.0-0.7); EOSINOPHILS % (AUTO) 2.9 % (0.0-6.0); HEMATOCRIT 39 % (39-51); HEMOGLOBIN 13.2 g/dL (13.5-17.5); LYMPHOCYTES # (AUTO) 2.1 K/uL (0.8-4.8); LYMPHOCYTES % (AUTO) 22.2 % (20.0-44.0); MEAN CORPUSCULAR HEMOGLOBIN 31 PG (26.0-33.0); MEAN CORPUSCULAR HGB CONC 34 g/dl (31.0-36.0); MEAN CORPUSCULAR VOLUME 90 fL (80-96); MONOCYTES # (AUTO) 0.5 K/uL (0.1-1.30); MONOCYTES % (AUTO) 5.5 % (2.0-12.0); NEUTROPHILS # (AUTO) 6.4 K/uL (1.8-8.9); NEUTROPHILS % (AUTO) 67.2 % (43.0-81.0); PLATELET COUNT (AUTO) 274 K/uL (150-450); RED BLOOD CELL COUNT(AUTO) 4.31 MIL/uL (4.5-6.0); RED CELL DISTRIBUTION WIDTH 12.8 % (11.5-15.0); WHITE BLOOD COUNT (AUTO) 9.5 K/uL (4.3-11.0)
[2023-07-30 02:22] LABS: ALANINE AMINOTRANSFERASE 40 U/L (12-78); ALBUMIN 3.4 g/dL (3.4-5.0); ALCOHOL, BLOOD 173 mg/dL (0-10); ALKALINE PHOSPHATASE 100 U/L (46-116); ASPARTATE AMINOTRANSFERASE 23 U/L (15-37); BILIRUBIN,DIRECT 0.1 mg/dL (0.0-0.2); BILIRUBIN,TOTAL 0.2 mg/dL (0.2-1.0); CALCIUM, SERUM 8.5 mg/dL (8.5-10.1); CARBON DIOXIDE 27 mmol/L (21-32); CHLORIDE 101 mmol/L (98-107); CREATININE 0.9 mg/dL (0.6-1.3); GLUCOSE 131 mg/dL (74-106); POTASSIUM 3.5 mmol/L (3.5-5.1); SODIUM SERUM 135 mmol/L (136-145); TOTAL PROTEIN, SERUM 7.1 g/dL (6.4-8.2); UREA NITROGEN, BLOOD 15 mg/dL (7-18)
[2023-07-30 02:26] LABS: ACETAMINOPHEN <10 ug/ml (10-30)
[2023-07-30 04:03] LABS: APPEARANCE,URINE CLEAR (CLEAR); BILIRUBIN,URINE NEGATIVE (NEGATIVE); BLOOD, URINE NEGATIVE Ery/uL (NEGATIVE); COLOR,URINE YELLOW (YELLOW); KETONES,URINE NEGATIVE (NEGATIVE); LEUKOCYTE ESTERASE ,URINE NEGATIVE (NEGATIVE); NITRITE, URINE NEGATIVE (NEGATIVE); PH,URINE 5.5 (5.0-8.0); PROTEIN,URINE NEGATIVE (NEGATIVE); UGLUCOSE NEGATIVE (NEGATIVE); UROBILINOGEN,URINE 0.2 EU/dL (0.2)
[2023-07-30 04:14] LABS: AMPHETAMINE, URINE NEGATIVE (NEGATIVE); BARBITURATE, URINE NEGATIVE (NEGATIVE); BENZODIAZEPINE, URINE NEGATIVE (NEGATIVE); CANNABINOID, URINE NEGATIVE (NEGATIVE); COCCAINE, URINE NEGATIVE (NEGATIVE); OPIATE, URINE NEGATIVE (NEGATIVE); PHENCYCLIDINE SCREEN,URINE NEGATIVE (NEGATIVE)
== END 2023-07-30 10:42 ==
LOC: ER 01:05
DX: R45.851 Suicidal ideations (principal); F19.10 Other psychoactive substance abuse, uncomplicated; I10 Essential (primary) hypertension; J45.901 Unspecified asthma with (acute) exacerbation; F20.9 Schizophrenia, unspecified; F31.9 Bipolar disorder, unspecified; F17.200 Nicotine dependence, unspecified, uncomplicated; Z59.00 Homelessness unspecified; Z20.822 Contact with and (suspected) exposure to COVID-19
CPT/HCPCS: 99285; 85025; 80048; 80076; 81003; 36415; 87426; 80143; 80320; 80307; C9803; G0480

== ENCOUNTER 2024-02-12 13:08 | Inpatient (IN) | payer MEDICAID, OTHER ==
[~2024-02-12] VITALS: Ht 188 cm; Wt 108.4 kg
[2024-02-12] MEDS: IV NS 0.9% 500 ML BAG IV ONE (14:10)
[2024-02-12 14:12] LABS: APPEARANCE,URINE CLEAR (CLEAR); BILIRUBIN,URINE NEGATIVE (NEGATIVE); BLOOD, URINE NEGATIVE Ery/uL (NEGATIVE); COLOR,URINE YELLOW (YELLOW); KETONES,URINE NEGATIVE (NEGATIVE); LEUKOCYTE ESTERASE ,URINE NEGATIVE (NEGATIVE); NITRITE, URINE NEGATIVE (NEGATIVE); PH,URINE 5.5 (5.0-8.0); PROTEIN,URINE NEGATIVE (NEGATIVE); UGLUCOSE NEGATIVE (NEGATIVE); UROBILINOGEN,URINE 0.2 EU/dL (0.2)
[2024-02-12 14:21] LABS: AMPHETAMINE, URINE NEGATIVE (NEGATIVE); BARBITURATE, URINE NEGATIVE (NEGATIVE); BENZODIAZEPINE, URINE NEGATIVE (NEGATIVE); CANNABINOID, URINE NEGATIVE (NEGATIVE); COCCAINE, URINE NEGATIVE (NEGATIVE); OPIATE, URINE NEGATIVE (NEGATIVE); PHENCYCLIDINE SCREEN,URINE NEGATIVE (NEGATIVE)
[2024-02-12 14:41] LABS: BASOPHILS # (AUTO) 0.1 K/uL (0.0-0.2); BASOPHILS % (AUTO) 0.7 % (0.0-2.0); EOSINOPHILS # (AUTO) 0.1 K/uL (0.0-0.7); HEMATOCRIT 40 % (39-51); HEMOGLOBIN 13.2 g/dL (13.5-17.5); LYMPHOCYTES # (AUTO) 1.9 K/uL (0.8-4.8); LYMPHOCYTES % (AUTO) 13.6 % (20.0-44.0); MEAN CORPUSCULAR HEMOGLOBIN 29 PG (26.0-33.0); MEAN CORPUSCULAR HGB CONC 33 g/dl (31.0-36.0); MEAN CORPUSCULAR VOLUME 88 fL (80-96); MONOCYTES # (AUTO) 1.1 K/uL (0.1-1.30); MONOCYTES % (AUTO) 7.7 % (2.0-12.0); NEUTROPHILS # (AUTO) 10.5 K/uL (1.8-8.9); PLATELET COUNT (AUTO) 305 K/uL (150-450); RED BLOOD CELL COUNT(AUTO) 4.53 MIL/uL (4.5-6.0); RED CELL DISTRIBUTION WIDTH 14.6 % (11.5-15.0); WHITE BLOOD COUNT (AUTO) 13.7 K/uL (4.3-11.0)
[2024-02-12 14:55] LABS: CALCIUM, SERUM 9.4 mg/dL (8.5-10.1); CARBON DIOXIDE 19 mmol/L (21-32); CHLORIDE 103 mmol/L (98-107); CREATININE 0.8 mg/dL (0.6-1.3); GLUCOSE 103 mg/dL (74-106); POTASSIUM 3.6 mmol/L (3.5-5.1); SODIUM SERUM 136 mmol/L (136-145); UREA NITROGEN, BLOOD 7 mg/dL (7-18)
[2024-02-12 14:57] LABS: INR 1.05 (0.91-1.10); PARTIAL THROMBOPLASTIN TIME 27.1 SEC (24.3-34.3); PROTHROMBIN TIME 11.1 SECS (9.2-11.1)
[2024-02-12 15:02] LABS: ALANINE AMINOTRANSFERASE 33 U/L (12-78); ALCOHOL, BLOOD < 3 mg/dL (0-10); ALKALINE PHOSPHATASE 124 U/L (46-116); ASPARTATE AMINOTRANSFERASE 26 U/L (15-37); BILIRUBIN,TOTAL 0.4 mg/dL (0.2-1.0); LIPASE 28 U/L (16-77); TOTAL PROTEIN, SERUM 8.1 g/dL (6.4-8.2)
[2024-02-12 15:17] LABS: ALBUMIN 3.4 g/dL (3.4-5.0); BILIRUBIN,DIRECT 0.1 mg/dL (0.0-0.2)
[2024-02-12] MEDS ORDERED: IOHEXOL-300 100 ML VIAL IV ONE (15:20)
[2024-02-12] MEDS ORDERED: IV NS 0.9% 250 ML IV ONE (15:20)
[2024-02-12] MEDS ORDERED: CT SWABBABLE VALVE TRANS SET 1 EA INFUS.SET MC ONE (15:20)
[2024-02-12 15:28] LABS: ACETAMINOPHEN 0 ug/ml (10-30); SALICYLATE < 0.2 mg/dL (2.8-20.0)
[2024-02-12] MEDS: PIPERACILLIN /TAZOBACTAM 3.375 G in IV D5W 50 ML IV ONE (16:05)
[2024-02-12] MEDS: MORPHINE SULFATE INJ 2 MG/ML DISP.SYRIN IV ONE (16:07)
[2024-02-12] MEDS: ONDANSETRON HCL/PF 4 MG/2 ML VIAL IVP ONE (16:07)
[2024-02-12] MEDS: IV NS 0.9% 1,000 ML BAG IV ONE (16:22)
[2024-02-12] MEDS ORDERED: VANCOMYCIN 1 GM /D5W 250 ML PB IV ONE (16:23)
[2024-02-12] MEDS: VANCOMYCIN 1 GM in IV D5W 250 ML IV ONE (16:28)
[2024-02-12] MEDS: ENOXAPARIN SODIUM 40 MG/0.4 ML DISP.SYRIN SQ SCH (18:00)
[2024-02-12] MEDS ORDERED: Z GUARD REMEDY 4 OZ OINT TP PRN (18:00)
[2024-02-12] MEDS ORDERED: ONDANSETRON HCL/PF 4 MG/2 ML VIAL IVP PRN (18:00)
[2024-02-12] MEDS ORDERED: MAG HYDROX/AL HYDROX/SIMETH 30 ML UDC PO PRN (18:00)
[2024-02-12] MEDS ORDERED: MAGNESIUM HYDROXIDE 30 ML UDC PO PRN (18:00)
[2024-02-12] MEDS ORDERED: BUPR-96 PO (18:57)
[2024-02-12] MEDS ORDERED: TRAZ-182 PO (18:57)
[2024-02-12 20:00] VITALS: BP 120/81; TEMP 99; O2SAT 100
[2024-02-12] MEDS ORDERED: VANCOMYCIN 1 GM in IV D5W 250ml IV ONE ×2 (20:00→21:00)
[2024-02-12] MEDS ORDERED: DIPH25CA83 PO (21:19)
[2024-02-12] MEDS ORDERED: diphenhydrAMINE HCL 25 MG CAPSULE ONE (22:29)
[2024-02-12] MEDS: diphenhydrAMINE HCL 50 MG CAPSULE PO ONE (22:30)
[2024-02-12] MEDS ORDERED: QUETIAPINE FUMARATE 100 MG TABLET PO SCH (22:30)
[2024-02-12] MEDS: QUETIAPINE FUMARATE 100 MG TABLET PO SCH (22:49)
[2024-02-13] MEDS: PIPERACILLIN /TAZOBACTAM 3.375 G in IV D5W 50 ML IV NR (00:19)
[2024-02-13 04:00] VITALS: BP 107/83; TEMP 97.3; O2SAT 100
[2024-02-13] MEDS: VANCOMYCIN HCL 1.25 GM in IV D5W 250 ML IV SCH (05:00)
[2024-02-13] MEDS: ZOSYN IVPB 3.375 G in IV D5W 50ml IV SCH (08:00)
[2024-02-13] MEDS: QUETIAPINE FUMARATE 100 MG TABLET PO SCH ×2 (08:38→10:15)
[2024-02-13] MEDS: SERTRALINE HCL 50 MG TABLET PO SCH (08:38)
[2024-02-13] MEDS ORDERED: MIRTAZAPINE SOLUTAB 45 MG/UDTABLET TAB.RAPDIS PO SCH (09:00)
[2024-02-13] MEDS ORDERED: LORAZEPAM INJ 2 MG/ML VIAL IM PRN (10:00)
[2024-02-13] MEDS: buPROPion SR 150 MG TABLET.ER PO SCH (10:13)
[2024-02-13] MEDS: ACETAMINOPHEN 325 MG TABLET PO PRN (15:48)
[2024-02-13 20:00] VITALS: BP 127/76; TEMP 99.1; O2SAT 98
[2024-02-13] MEDS: TRAZODONE 50 MG TABLET PO SCH (21:15)
[2024-02-13] MEDS ORDERED: diphenhydrAMINE HCL 25 MG CAPSULE ONE ×2 (22:19→22:21)
[2024-02-13] MEDS: diphenhydrAMINE HCL 50 MG CAPSULE PO PRN (22:45)
[2024-02-14 04:00] VITALS: BP 99/65; TEMP 97.9; O2SAT 98
[2024-02-14] MEDS ORDERED: CLIN-27 PO (09:09)
[2024-02-14] MEDS ORDERED: IBUP-1953 PO (09:09)
[2024-02-14] MEDS: CLINDAMYCIN HCL 150 MG CAPSULE PO SCH (11:37)
[2024-02-14 12:18] VITALS: BP 107/83; TEMP 97.3; O2SAT 100
[2024-02-14] MEDS: IBUPROFEN 400 MG TABLET PO PRN (15:30)
[2024-02-14 20:00] VITALS: BP 126/75; TEMP 97.5; TEMP 97.7; O2SAT 97
[2024-02-14] MEDS: diphenhydrAMINE HCL 25 MG CAPSULE PO PRN (21:48)
[2024-02-15 04:00] VITALS: BP 110/76; TEMP 97.7; O2SAT 98
== END 2024-02-15 10:39 | disposition home or self-care (01) | DRG 254 ==
LOC: ER 13:08 → MEDSG1 18:21
PROVIDERS: ADMIT Internal Medicine; ATTEND Internal Medicine
DX: K43.6 Other and unspecified ventral hernia with obstruction, without gangrene (principal); R45.851 Suicidal ideations; F25.1 Schizoaffective disorder, depressive type; F29 Unspecified psychosis not due to a substance or known physiological condition; L03.311 Cellulitis of abdominal wall; E66.9 Obesity, unspecified; Z68.30 Body mass index [BMI] 30.0-30.9, adult; J45.909 Unspecified asthma, uncomplicated; I10 Essential (primary) hypertension; Z79.899 Other long term (current) drug therapy; Z91.199 Patient's noncompliance with other medical treatment and regimen due to unspecified reason; Z53.20 Procedure and treatment not carried out because of patient's decision for unspecified reasons; K80.20 Calculus of gallbladder without cholecystitis without obstruction
CPT/HCPCS: 36415; 80048-TC; 80076-TC; 83605-TC; 83690-TC; 85025-TC; 85730-TC; 87040-TC; 98960; G0378; G0480; J1650; J2543; J3370; J7030; J7040; J7050; J7060; Q0163; Q9967

== ENCOUNTER 2024-08-25 10:53 | Emergency (ER) | payer OTHER ==
[~2024-08-25] VITALS: Ht 170.2 cm; Wt 95.3 kg
[~2024-08-25 10:53] MED LIST changes: +BUPR-96 PO; +CLIN-27 PO; +DIPH25CA83 PO; +IBUP-1953 PO; -MIRT45TA3 PO; -SERT100T PO; +TRAZ-182 PO
[2024-08-25 15:35] LABS: BASOPHILS # (AUTO) 0.1 K/uL (0.0-0.2); BASOPHILS % (AUTO) 0.8 % (0.0-2.0); EOSINOPHILS # (AUTO) 0.1 K/uL (0.0-0.7); EOSINOPHILS % (AUTO) 0.8 % (0.0-6.0); HEMATOCRIT 39 % (39-51); HEMOGLOBIN 13.2 g/dL (13.5-17.5); LYMPHOCYTES # (AUTO) 1.2 K/uL (0.8-4.8); LYMPHOCYTES % (AUTO) 10.4 % (20.0-44.0); MEAN CORPUSCULAR HEMOGLOBIN 30 PG (26.0-33.0); MEAN CORPUSCULAR HGB CONC 33 g/dl (31.0-36.0); MEAN CORPUSCULAR VOLUME 89 fL (80-96); MONOCYTES # (AUTO) 1.2 K/uL (0.1-1.30); MONOCYTES % (AUTO) 9.6 % (2.0-12.0); NEUTROPHILS # (AUTO) 9.4 K/uL (1.8-8.9); NEUTROPHILS % (AUTO) 78.4 % (43.0-81.0); PLATELET COUNT (AUTO) 251 K/uL (150-450); RED BLOOD CELL COUNT(AUTO) 4.41 MIL/uL (4.5-6.0); RED CELL DISTRIBUTION WIDTH 14.6 % (11.5-15.0)
[2024-08-25 15:42] LABS: CALCIUM, SERUM 8.8 mg/dL (8.5-10.1); CARBON DIOXIDE 21 mmol/L (21-32); CHLORIDE 107 mmol/L (98-107); POTASSIUM 3.6 mmol/L (3.5-5.1); SODIUM SERUM 141 mmol/L (136-145); UREA NITROGEN, BLOOD 25 mg/dL (7-18)
[2024-08-25 15:52] LABS: ALANINE AMINOTRANSFERASE 42 U/L (12-78); ALBUMIN 3.7 g/dL (3.4-5.0); ALCOHOL, BLOOD < 3 mg/dL (0-10); ALKALINE PHOSPHATASE 102 U/L (46-116); ASPARTATE AMINOTRANSFERASE 38 U/L (15-37); BILIRUBIN,DIRECT 0.3 mg/dL (0.0-0.2); BILIRUBIN,TOTAL 1.1 mg/dL (0.2-1.0); TOTAL PROTEIN, SERUM 6.9 g/dL (6.4-8.2)
[2024-08-25 15:58] LABS: GLUCOSE 114 mg/dL (74-106)
[2024-08-25 16:00] LABS: ACETAMINOPHEN <10 ug/ml (10-30); SALICYLATE 2.4 mg/dL (2.8-20.0)
[2024-08-25 17:00] VITALS: BP 130/76; TEMP 98; O2SAT 97
[2024-08-25 18:07] LABS: APPEARANCE,URINE Clear (CLEAR); BILIRUBIN,URINE SMALL (NEGATIVE); BLOOD, URINE Negative Ery/uL (NEGATIVE); COLOR,URINE YELLOW (YELLOW); KETONES,URINE 40 mg/dL (NEGATIVE); LEUKOCYTE ESTERASE ,URINE Negative (NEGATIVE); NITRITE, URINE Negative (NEGATIVE); PH,URINE 5.5 (5.0-8.0); PROTEIN,URINE Trace mg/dl (NEGATIVE); UGLUCOSE Negative (NEGATIVE); UROBILINOGEN,URINE 0.2 EU/dL (0.2)
[2024-08-25 18:17] LABS: AMPHETAMINE, URINE POSITIVE (NEGATIVE); BARBITURATE, URINE NEGATIVE (NEGATIVE); BENZODIAZEPINE, URINE NEGATIVE (NEGATIVE); CANNABINOID, URINE NEGATIVE (NEGATIVE); COCCAINE, URINE NEGATIVE (NEGATIVE); OPIATE, URINE NEGATIVE (NEGATIVE); PHENCYCLIDINE SCREEN,URINE NEGATIVE (NEGATIVE)
[2024-08-25 18:19] LABS: ADD URINE CULTURE NO; RBC,URINE 0-2 /HPF (0-2); WBC,URINE 0-2 /HPF (0-3)
[2024-08-25 18:20] LABS: BACTERIA,URINE None seen /HPF (None Seen); SQUAMOUS EPITHELIAL CELL,UR None Seen /HPF (None Seen)
== END 2024-08-25 21:11 ==
LOC: ER 11:00
DX: M79.672 Pain in left foot (principal); R45.851 Suicidal ideations; F15.10 Other stimulant abuse, uncomplicated; M25.562 Pain in left knee; F17.200 Nicotine dependence, unspecified, uncomplicated; F29 Unspecified psychosis not due to a substance or known physiological condition; I10 Essential (primary) hypertension; J45.909 Unspecified asthma, uncomplicated; Z59.00 Homelessness unspecified; Z79.899 Other long term (current) drug therapy; Z60.2 Problems related to living alone; Z20.822 Contact with and (suspected) exposure to COVID-19
CPT/HCPCS: 36415; 73560-TC; 73630-TC; 80048-TC; 80076-TC; 81001; 85025-TC; G0480